=== PATIENT | female | born 1960 | race Two or more races ===

== ENCOUNTER 2019-01-05 06:00 | Day surgery (SDC) | payer OTHER ==
[~2019-01-05 06:00] MED LIST: AMBIEN10 MG PO; COZAAR25 MG PO; GABAPENT PO; GLUCOTROL10 MG PO; LANTUS; METFOR PO
== END 2019-01-05 11:41 | disposition home or self-care (01) ==
LOC: CIR.AMB 06:00
DX: G56.02 Carpal tunnel syndrome, left upper limb (principal)